=== PATIENT | female | born 1950 | race Caucasian/White ===

== ENCOUNTER → 2016-12-04 | Outpatient (CLI) | payer OTHER ==
--- NOTE | 2016-12-04 17:33 | US ---
Complete pelvic ultrasound INDICATION: Family diagnosis of ovarian cancer. TECHNIQUE: Transabdominal and transvaginal pelvic ultrasound was performed. COMPARISON: May 24, 2015, August 2013. FINDINGS: Uterus measures 7 x 2.6 x 3.5 cm. There is a calcified left fundal intramural fibroid of 2. 2 x 1.7 x 1.9 cm, basically unchanged in size from prior ultrasounds. The lining measures 2.4 mm. No fluid in the lining. No evidence for mass. Right ovary measures 1.7 x 0.9 x 1.1 cm. The left ovary measures 1.8 x 0.6 x 1 cm. Both are sonograph ically normal for the patient's age. There is no adnexal mass. No fluid in the pelvis. IMPRESSION: 1. No change in calcified uterine fibroid. 2. Normal bilateral adnexa.
== END ==
LOC: BMCIMAGING 09:17
PROVIDERS: ATTEND Nurse Practitioner Women's Health
DX: Z80.41 Family history of malignant neoplasm of ovary (principal); D25.1 Intramural leiomyoma of uterus

== ENCOUNTER → 2017-05-28 | Outpatient (CLI) | payer OTHER | LOC: BMCIMAGING 09:04 | PROVIDERS: ATTEND Nurse Practitioner Women's Health | DX: Z12.31 Encounter for screening mammogram for malignant neoplasm of breast (principal) | CPT/HCPCS: G0202 ==